=== PATIENT | male | born 1950 | race Caucasian/White ===

== ENCOUNTER → 2024-02-08 07:04 | Outpatient (REF) | payer OTHER, SELFPAY | LOC: HWRAD 07:04 | PROVIDERS: ATTENDING PHYSICIAN Internal Medicine Hematology & Oncology; FAMILY PHYSICIAN Family Medicine | DX: C7A.00 Malignant carcinoid tumor of unspecified site (principal); Z85.528 Personal history of other malignant neoplasm of kidney; C7B.04 Secondary carcinoid tumors of peritoneum | CPT/HCPCS: 74176 ==

== ENCOUNTER 2024-06-18 13:58 | Observation (INO) | payer OTHER, SELFPAY ==
[2024-06-18] VITALS (14 sets, daily range): BP systolic 129–180; BP diastolic 68–94; BMI 28.1
[2024-06-18] MEDS: NSS 500 IV (07:51)
[2024-06-18] MEDS: DILAUDID 0.5 MG IV ×2 (08:00→10:01)
[2024-06-18] MEDS: ZOFRAN 4 MG IV (08:00)
[2024-06-18 08:02] LABS: % Basophils 0.7 % (0-2); % Eosinophils 0.8 % (0-6); % Immature Granulocytes 0.4 % (0-0.5); % Monocytes 9.7 % (1.7-9.3); % Neutrophils 60.4 % (42.2-75.2); Absolute Basophils 0.1 10^3/uL (0-0.2); Absolute Eosinophils 0.1 10^3/uL (0-0.7); Absolute Lymphocytes 2.5 10^3/uL (1.2-3.4); Absolute Monocytes 0.9 10^3/uL (0.1-0.6); Absolute Neutrophils 5.5 10^3/uL (1.4-6.5); Hematocrit 46.1 % (39.0-52.0); Hemoglobin 16.3 g/dL (13.0-18.0); Mean Corp Hgb Conc. 35.4 g/dL (33.0-37.0); Mean Corpuscular Volume 90.4 fL (80.0-94.0); Nucleated Red Blood Cells % 0 % (-); Platelet Count 297 10^3/uL (130-400); Red Cell Dist. Width 13.1 % (11.5-14.5); White Blood Cell Count 9.1 10^3/uL (4.8-10.8)
--- NOTE | 2024-06-18 08:55 | ED.GENMED ---
History of Present Illness
General
Chief Complaint: Abdominal Pain
Source: patient
Exam Limitations: none
Time Seen by Provider: 06/18/24 07:34
History of Present Illness
History of Present Illness:
73-year-old male complaining of abdominal pain. Progressive over the last week. Much worse the last few days. Some nausea. History of inoperable abdominal cancer. Patient could not be more specific. Is on chronic pain management. However this
is not relieved the pain the last few days.
Past History
Past History
ED Past Medical History: Cancer (R kidney), HTN, Hypercholesterolemia and Other (Ileitis, IBS,)
ED Past Surgical History: Cholecystectomy and Other (right Nephrectomy, splenectomy)
Social History
Tobacco: Non-smoker
Alcohol: Daily ( 3-4 Beer)
Drug: None
Personal:
Living: alone
Employment: Employed
Family History
Family History: Hypertension
Review of Systems
Review of Systems
All Other Systems: Not applicable
Constitutional: Denies fever or chills
Respiratory: Reports no symptoms
Cardiac: Reports no symptoms
Phy Exam
Physical Exam
Physical Exam:
GENERAL: Alert and oriented in no apparent distress
EYE: Orbits normal.
NECK: Supple
CARDIAC: Regular rate and rhythm without any obvious murmurs.
LUNGS: Clear breath sounds,normal
ABDOMEN: Soft, bowel sounds present. No distention. Diffuse tenderness mostly in the upper quadrants. No rebound or guarding no mass or hernia
NEUROLOGICAL: Alert and oriented , grossly non-focal
SKIN: Warm and dry, no rash or lesion, no discoloration, skin intact.
MUSCULOSKELETAL: No edema,no deformity.Good color
PSYCH: Normal and appropriate interaction.
Course
Orders/Labs/Results
Orders:
Orders
06/18/24 07:45
IV Insert/Care/Rem.- Treatment PRN
0.9% Sodium Chloride 500 ml [Nss] 500 ml IV BOLUS
HYDROmorphone [Dilaudid] 0.5 mg IV NOW STA
Ondansetron Injectable [Zofran] 4 mg IV NOW STA
06/18/24 07:47
CT Abd/pel (oral only)-DH Only Urgent
Comment:
Reason For Exam: Abdominal pain progressive. History of CA
06/18/24 07:51
Complete Blood Count/With Diff Urgent
Urinalysis Reflex To Culture Urgent
Date Specimen was Collected: 06/18/24
Time Specimen was Collected: 07:49
Urine Microscopic Reflex Cult Urgent
06/18/24 08:23
Iohexol [Omnipaque] 50 ml .ROUTE .STK-MED ONE
06/18/24 09:34
Iohexol [Omnipaque] See Protocol PO NOW STA
06/18/24 09:42
Comprehensive Metabolic Panel Urgent
Lipase Urgent
06/18/24 09:44
HYDROmorphone [Dilaudid] 0.5 mg IV NOW STA
Abnormal Lab Results
06/18/24 06/18/24
07:51 09:42
MCH 32.0 H pg
(27.0-31.0)
Absolute Monos (auto) 0.9 H 10^3/uL
(0.1-0.6)
Monocytes % 9.7 H %
(1.7-9.3)
Glucose 126 H mg/dl
(70-99)
Total Bilirubin 2.0 H mg/dl
(0.2-1.3)
Ur Occult Blood Reflex 1+ A
(Negative)
Urine RBC 3-6 A /HPF
(0-2)
Urine Albumin (Reflex) 1+ A
(Neg - Trace)
06/18/24 07:51
06/18/24 09:42
Vital Signs
Initial and Last Documented VS:
Initial Vital Signs
Temp Pulse Resp BP Pulse Ox
98.1 F 78 16 180/94 99
06/18/24 07:04 06/18/24 07:04 06/18/24 07:04 06/18/24 07:04 06/18/24 07:04
Last Documented Vital Signs
Temp Pulse Resp BP Pulse Ox
98.1 F 58 22 136/69 96
06/18/24 07:04 06/18/24 11:15 06/18/24 10:45 06/18/24 11:00 06/18/24 11:15
MDM/Problems Addressed
Differential Diagnosis Includes:
Progressive abdominal pain. Large differential including progression of his cancer, diverticulitis, appendicitis. Workup in progress
*Radiology
Radiology exam reviewed: radiology read reviewed (No acute findings on CT.. Some mild fat stranding towards the abdominal wall. May reflect metastatic peritoneal implants)
*Pulse Oximetry
Patient hypoxic: no
*Critical Care Note
Total Time (30-74mins, 75-104mins- exclusive of procedures): Not Applicable
Update Note
Update Note:
Patient with intractable pain. Not comfortable with outpatient management.
ED Attending Note
-
Portions of this chart may have been created with voice recognition software.� Occasional wrong word or��sound alike� substitutions may have occurred due to the inherent limitations of voice recognition software.
Discharge Plan
Departure
Patient Disposition: Admit
Date of Disposition: 06/18/24
Time of Disposition: 11:30
Presentation/result/management discussed w/ accepting MD/DO: Hospitalist
Discharge Problem:
Intractable abdominal pain, Known nonoperable carcinoid CA
Prescriptions:
No Action
quinapril [Accupril] 40 MG tablet
80 mg PO DAILY
acetaminophen 325 MG tablet
650 mg PO Q4HPRN PRN (Reason: mild pain/ONEIL/temp> 100.4F) 0RF
atorvastatin 40 MG tablet
40 mg PO QPM
thiamine HCl (vitamin B1) 100 MG tablet
100 mg PO BID 0RF
amlodipine 2.5 MG tablet
2.5 mg PO DAILY Qty: 30 0RF
folic acid 1 MG tablet
1 mg PO DAILY 0RF
Referrals:
Julianna Tsang MD [Family Provider] -
Interventions
Interventions:
*Risk Screen - Suicide Last Done: 06/18/24 07:06
*General Assessment Last Done: 06/18/24 11:28
*Neglect/Abuse Screening Last Done: 06/18/24 07:06
ED- Fall Risk Assessment Last Done: 06/18/24 08:27
PO-Exfqjj-Didmuuesaz Assessment Last Done: 06/18/24 08:27
Discharge Date and Time
Print Language: ESTONIAN
[2024-06-18 09:06] LABS: Urine Albumin 1+ (Neg - Trace); Urine Bilirubin Negative (Negative); Urine Character Clear (Clear); Urine Color Yellow; Urine Glucose Negative (Negative); Urine Ketone Negative (Negative); Urine Leukocyte Negative (Negative); Urine Nitrite Negative (Negative); Urine Occult Blood 1+ (Negative); Urine Urobilinogen Negative (Neg - 1+)
[2024-06-18] MEDS: OMNIPAQUE 50 ML PO (09:35)
[2024-06-18 09:53] LABS: Urine Mucus Few
[2024-06-18 09:56] LABS: Urine Amorphous Seen; Urine White Cell 0-2 /HPF (0-5)
[2024-06-18 10:07] LABS: ALT (SGPT) 28 U/L (0-50); AST (SGOT) 37 U/L (17-59); Albumin 4.3 g/dl (3.5-5.0); Alkaline Phosphatase 67 U/L (38-126); Blood Urea Nitrogen 14 mg/dl (9-20); Calcium 9.6 mg/dl (8.4-10.2); Carbon Dioxide 26 mmol/L (22-30); Chloride 103 mmol/L (98-107); Glucose 126 mg/dl (70-99); Lipase 48 U/L (23-300); Potassium 4.4 mmol/L (3.5-5.1); Sodium 141 mmol/L (135-145); Total Protein 6.8 g/dl (6.3-8.2); eGFR > 60.00
--- NOTE | 2024-06-18 13:01 | HPS.HSE ---
Family Physician
-
Family Physician: Julianna Tsang
Chief Complaint
-
Abdominal pain
History of Present Illness
73 y/o M with PMHx:
Essential hypertension
Hyperlipidemia
Alcohol dependence
who p/w CC abdominal pain. Patient reports his abdominal pain has progressed over the last week. The pain has been fairly constant over the last few days and periumbilical. Until today he has had about 1 meal daily. He states he has been
urinating a little more than usual. He had vomiting this morning. Denies any lightheadedness, chest pain, shortness of breath, rash, dysuria. He denies any other acute complaints.
Medical History
Past Medical History
Past Medical History: Reports Other (Essential hypertension. Hyperlipidemia. Alcohol dependence.)
Past Surgical History: Reports Cholecystectomy and Other (R nephrectomy, splenectomy)
Social History
Tobacco: Non-smoker
Alcohol: Daily (states a 6-pack lasts him a week)
Drug: None
Family History
Family History: Not pertinent
Allergies / Home Medications
Allergies reflects when Allergies were last updated in [facility] [employer].
Home Medications with original date entered in [facility]
Allergy/Medication List:
Allergies
Allergy/AdvReac Type Severity Reaction Status Date / Time
Iodinated Contrast Media Allergy Anaphylaxis Verified 12/14/22 11:02
[Iodinated Contrast- Oral
and IV Dye]
Home Medications
hydrocodone 5 mg-acetaminophen 325 mg tablet 1 tab PO BID 06/18/24
hydrocodone 5 mg-acetaminophen 325 mg tablet 1 tab PO BIDPRN PRN SEVERE PAINS 06/18/24
rosuvastatin 40 mg tablet (Crestor) 40 mg PO DAILY 06/18/24
Review of Systems
-
History Source: Patient
A 12 point ROS was completed and negative except as noted: Yes
Physical Exam
Vital Signs
Vital Signs
Temp Pulse Resp BP Pulse Ox
98.1 F 58 22 136/69 96
06/18/24 07:04 06/18/24 11:15 06/18/24 10:45 06/18/24 11:00 06/18/24 11:15
Physical Exam
General: Other (.)
Laboratory Results
-
06/18/24 07:51
06/18/24 09:42
Laboratory Results
Total Bilirubin 2.0 mg/dl (0.2-1.3) H 06/18/24 09:42
AST 37 U/L (17-59) 06/18/24 09:42
ALT 28 U/L (0-50) 06/18/24 09:42
Alkaline Phosphatase 67 U/L (38-126) 06/18/24 09:42
Lipase 48 U/L (23-300) 06/18/24 09:42
Impression/Plan
-
Gen: NAD, AAOx3.
Eyes: EOMI, PERRLA, no scleral icterus.
Neck: supple.
CV: RRR, +S1/S2, no m/r/g.
Resp: CTAB, no rales, wheezes, or rhonchi.
Abd: +BS, soft, periumbilical TTP, ND
Skin: No rashes.
Neuro: CN 2-12 intact, non-focal.
Psych: Normal mood and affect.
CT A/P w/PO: Stable CT appearance of short segment wall thickening of the ileum and mild soft tissue nodularity in the right lower quadrant mesentery that remains most compatible with the history of carcinoid. Stable mild fat stranding deep to the
anterior abdominal wall may reflect metastatic peritoneal implants. No new acute process in the abdomen or pelvis within the limitations of the lack of intravenous contrast.
Abdominal pain and vomiting:
-afebrile, no leukocytosis
-CT A/P with PO contrast without acute findings
-likely abdominal pain is related to underlying inoperable carcinoid
-NPO/IVFs
-IV Dilaudid PRN
-Reglan PRN (zofran did not help prior)
-c/s onc
Other problems:
Essential hypertension: Previous diagnosis, currently not on antihypertensive medications
Hyperlipidemia: Resume statin once vomiting improves
Alcohol dependence: MSAS protocol with thiamine/folate/PRN ativan
FULL/Lovenox
[2024-06-18] MEDS: REGLAN 10 MG IV (13:39)
--- NOTE | 2024-06-18 17:49 | PTCARENOTE ---
Pt came from ED on stretcher. Walked from stretcher to bed. AAOx3 able to make needs known. MSAS ordered and currently scoring 0. Oriented to room and use of call murray/ remote. Denies pain at this time.
[2024-06-18] MEDS: D5/0.45%NACL 1000 IV (18:02)
[2024-06-18] MEDS: LOVENOX 40 MG SC (18:02)
[2024-06-18] MEDS: FOLVITE 1 MG PO (18:02)
[2024-06-18] MEDS: DILAUDID 1 MG IV (19:36)
[2024-06-18] MEDS: THIAMINE INJECTION 200 MG IV (20:13)
[2024-06-18 20:28] LABS: Magnesium 1.9 mg/dl (1.6-2.3); Phosphorus 2.3 mg/dl (2.5-4.5)
[2024-06-18 20:29] LABS: Alcohol None Detected
[2024-06-18 21:38] LABS: INR 1.09; PT 13.9 Sec (11.4-14.6)
[2024-06-19] MEDS: D5/0.45%NACL 1000 IV ×2 (00:29→09:01)
[2024-06-19] MEDS: DILAUDID 1 MG IV (03:12)
[2024-06-19 05:31] LABS: Hematocrit 41.6 % (39.0-52.0); Hemoglobin 14.7 g/dL (13.0-18.0); Mean Corp Hgb Conc. 35.3 g/dL (33.0-37.0); Mean Corpuscular Hgb 32.5 pg (27.0-31.0); Mean Corpuscular Volume 91.8 fL (80.0-94.0); Mean Platelet Volume 9.7 fL (7.4-10.4); Platelet Count 251 10^3/uL (130-400); Red Blood Cell Count 4.53 10^6/uL (4.70-6.10); White Blood Cell Count 9.8 10^3/uL (4.8-10.8)
[2024-06-19 06:24] LABS: Blood Urea Nitrogen 10 mg/dl (9-20); Carbon Dioxide 27 mmol/L (22-30); Chloride 103 mmol/L (98-107); Estimated Creatinine Clearance 59 ml/min; Glucose 145 mg/dl (70-99); Potassium 4.3 mmol/L (3.5-5.1); Sodium 138 mmol/L (135-145); eGFR > 60.00
[2024-06-19] MEDS: FOLVITE 1 MG PO (07:54)
[2024-06-19] MEDS: THIAMINE INJECTION 200 MG IV (07:54)
[2024-06-19 07:56] VITALS: BP 164/85
[2024-06-19] MEDS: REGLAN 10 MG IV (08:06)
--- NOTE | 2024-06-19 09:57 | W.PN.HOSP.TC ---
Today's Communication/Plan
-
Advance diet. Discharge planning in progress.
Assessment / Plan
Assessment / Plan
Physical exam:
General: Well Developed, Well Nourished and No Apparent Distress
HEENT: Normocephalic, Atraumatic and Moist Mucous Membranes
Respiratory: Clear to Auscultation; Negative Wheezes, Rales or Rhonchi
Cardiac: Regular Rhythm and S1/S2
GI: Soft, Nontender and Nondistended
Musculoskeletal: No Clubbing, No Cyanosis and No Edema
Neuro: Awake, Alert and Oriented
Psych: Calm
A/P:
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
-afebrile, no leukocytosis
-CT A/P with PO contrast without acute findings
-likely abdominal pain is related to underlying inoperable carcinoid
-Started on diet today by oncology/IVFs decrease rate and stop later.
-IV Dilaudid PRN but has not used any today
-Reglan PRN (zofran did not help prior) but has not used any antiemetic today
-c/s onc appreciated. Plan to continue octreotide as outpatient.
-Plan to discharge today if tolerates diet
Other problems:
Essential hypertension: Previous diagnosis, currently not on antihypertensive medications
Hyperlipidemia: Resume statin once vomiting improves
Alcohol dependence: MSAS protocol with thiamine/folate/PRN ativan
FULL/Lovenox
Anticipated Discharge: Today
Subjective/Interval History
-
Date of Service: June 19, 2024
Patient denies any abdominal pain nausea vomiting today.
Objective Data
-
Labs:
Laboratory Results
06/19/24
05:22
WBC 9.8
Hgb 14.7
Hct 41.6
Plt Count 251
Sodium 138
Potassium 4.3
Chloride 103
Carbon Dioxide 27
BUN 10
Creatinine 1.0
Glucose 145 H
Calcium 9.0
Vital Signs:
Vital Signs
Temp Pulse Resp BP Pulse Ox
98.3 F 64 16 164/85 96
06/19/24 07:56 06/19/24 07:56 06/19/24 07:56 06/19/24 07:56 06/19/24 07:56
--- NOTE | 2024-06-19 11:33 | CON.ONC ---
Impression
Impression
Abdominal pain, most likely related to carcinoid, resolved
Plan
Plan
I have given him a regular diet. No objections to discharge if he tolerates it.
Patient History
History of Present Illness
Consult from Dr. Brito regarding carcinoid
This 73-year-old man was admitted with abdominal pain. 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 There was too much disease to consider resection. He has been
maintained on octreotide and is doing reasonably well. He has had no symptoms of carcinoid syndrome. He gets occasional bouts of abdominal pain which resolved with hydrocodone. However, he had severe pain that did not respond to oral narcotics
and has been admitted through the emergency room. He has had no vomiting. He had a bowel movement this morning. His abdominal pain has entirely resolved.
Patient Medication
�Medication �Instructions �Recorded �Confirmed �Last Taken �Type
hydrocodone 5 mg-acetaminophen 325 1 tab PO BID 06/18/24 06/18/24 06/18/24 History
mg tablet
hydrocodone 5 mg-acetaminophen 325 1 tab PO BIDPRN PRN SEVERE PAINS 06/18/24 06/18/24 06/18/24 History
mg tablet
rosuvastatin 40 mg tablet (Crestor) 40 mg PO DAILY 06/18/24 06/18/24 Unknown History
Active Medications
Generic Name Dose Route Start Last Admin
Trade Name Freq PRN Reason Stop Dose Admin
Bisacodyl 10 mg 06/18/24 16:48
Bisacodyl 10 Mg Rectal Suppository RECTAL 07/16/24 16:47
[id number] PRN
constipation
Enoxaparin Sodium 40 mg 06/18/24 18:00 06/18/24 18:02
Enoxaparin Sodium 40 Mg/0.4 Ml Syringe SC 07/16/24 17:59 40 mg
QPM JOAO Administration
Folic Acid 1 mg 06/18/24 16:48 06/19/24 07:54
Folic Acid 1 Mg Tablet PO 07/16/24 16:47 1 mg
DAILY JOAO Administration
Hydromorphone HCl 1 mg 06/18/24 16:48 06/19/24 03:12
Hydromorphone 1 Mg/Ml Carpuject IV 07/02/24 16:47 1 mg
Q4HPRN PRN Administration
severe pain
Dextrose/Sodium Chloride 1,000 mls @ 125 mls/hr 06/18/24 16:48 06/19/24 09:01
D5/0.45%Nacl IV 1,000 mls
.Q8H JOAO Administration
Folic Acid 1 mg/ Sodium 50.2 mls @ 200.8 mls/hr 06/18/24 16:48
Chloride IV 07/16/24 16:47
DAILYPRN PRN
if NPO
Lorazepam 1 mg 06/18/24 16:48
Lorazepam 1 Mg Tablet PO 07/16/24 16:47
Q2HPRN PRN
MSAS 5-7
Lorazepam 1 mg 06/18/24 16:48
Lorazepam 2 Mg/Ml Vial IV 07/16/24 16:47
Q1HPRN PRN
MSAS 8-11
Lorazepam 2 mg 06/18/24 16:48
Lorazepam 2 Mg/Ml Vial IV 07/16/24 16:47
Q1HPRN PRN
MSAS > 11
Metoclopramide HCl 10 mg 06/18/24 13:12 06/19/24 08:06
Metoclopramide 10 Mg/2 Ml Vial IV 07/16/24 13:11 10 mg
Q6HPRN PRN Administration
nausea and vomiting
Polyethylene Glycol 17 grams 06/18/24 16:48
Polyethylene Glycol Powder 17 Grams Packet PO 07/16/24 16:47
DAILYPRN PRN
constipation
Senna/Docusate Sodium 1 tablet 06/18/24 16:48
Docusate W/Senna (Tierra-Colace) Tablet PO 07/16/24 16:47
BIDPRN PRN
constipation
Sodium Chloride 0 flush 06/18/24 14:00
Sodium Chloride 0.9% (Flush) Syringe IV 07/16/24 13:59
PER PROTOCOL JOAO
Sodium Chloride 0 ml 06/18/24 16:48
Sodium Chloride 0.9% (Preservative Free) 10 Ml Vial IV 07/16/24 16:47
PRN PRN
To dilute IV Ativan
Protocol
Thiamine HCl 200 mg 06/18/24 20:00 06/19/24 07:54
Thiamine (100 Mg/Ml) 2 Ml Vial IV 06/21/24 08:01 200 mg
Q12 JOAO Administration
Thiamine HCl 100 mg 06/21/24 20:00
Thiamine 100 Mg Tablet PO 07/19/24 19:59
BID JOAO
Review of Systems
-
All Other Systems: Reviewed and Negative
Physical Exam
-
Physical examination shows the patient to be in no acute distress.
HEENT exam is unremarkable.
There are no palpable nodes.
Chest is clear.
The heart is regular with no murmur or gallop.
The abdomen is soft and nontender with no organomegaly or masses.
Extremities are unremarkable.
Neurologic is grossly intact.
Labs
Lab Results
WBC 9.8 10^3/uL (4.8-10.8) 06/19/24 05:22
RBC 4.53 10^6/uL (4.70-6.10) L 06/19/24 05:22
Hgb 14.7 g/dL (13.0-18.0) 06/19/24 05:22
Hct 41.6 % (39.0-52.0) 06/19/24 05:22
MCV 91.8 fL (80.0-94.0) 06/19/24 05:22
MCH 32.5 pg (27.0-31.0) H 06/19/24 05:22
MCHC 35.3 g/dL (33.0-37.0) 06/19/24 05:22
RDW 13.0 % (11.5-14.5) 06/19/24 05:22
Plt Count 251 10^3/uL (130-400) 06/19/24 05:22
MPV 9.7 fL (7.4-10.4) 06/19/24 05:22
Abs Immat Gran (auto) 0.0 10^3/uL (0-0.05) 06/18/24 07:51
Absolute Neuts (auto) 5.5 10^3/uL (1.4-6.5) 06/18/24 07:51
Absolute Lymphs (auto) 2.5 10^3/uL (1.2-3.4) 06/18/24 07:51
Absolute Monos (auto) 0.9 10^3/uL (0.1-0.6) H 06/18/24 07:51
Absolute Eos (auto) 0.1 10^3/uL (0-0.7) 06/18/24 07:51
Absolute Basos (auto) 0.1 10^3/uL (0-0.2) 06/18/24 07:51
Immature Gran % 0.4 % (0-0.5) 06/18/24 07:51
Neutrophils % 60.4 % (42.2-75.2) 06/18/24 07:51
Lymphocytes % 28.0 % (20.5-51.1) 06/18/24 07:51
Monocytes % 9.7 % (1.7-9.3) H 06/18/24 07:51
Eosinophils % 0.8 % (0-6) 06/18/24 07:51
Basophils % 0.7 % (0-2) 06/18/24 07:51
Creatinine 1.0 mg/dL (0.7-1.3) 06/19/24 05:22
Vital Signs
Vital Signs
Temp Pulse Resp BP Pulse Ox
98.3 F 64 16 164/85 96
06/19/24 07:56 06/19/24 07:56 06/19/24 07:56 06/19/24 07:56 06/19/24 07:56
--- NOTE | 2024-06-19 14:30 | W.DCSUMMARY ---
Discharge Summary
Discharge Data
Date of Admission: 06/18/24
Date of Discharge: 06/19/24
-
Pending Results: No
Hospital Course
Patient is 73 years old male with history of neuroendocrine tumor came into the hospital abdominal pain. Patient has been seeing oncology as outpatient and he was felt to have too much disease to consider resection and he has been maintained on
octreotide and doing well as outpatient. Patient came in with abdominal pain nausea. He took his oral narcotics but did not tolerate well and came into the hospital. He had a CT scan of the abdomen that shows evidence of carcinoid but no other
pathologies. He was kept n.p.o. and given IV fluids. Oncology consulted. By the time oncology evaluated the patient the following day patient pain had improved and he was placed on diet that he tolerated. By the time of my evaluation abdomen is
very benign and he is tolerating diet without any problems. He would like to follow-up with oncology as outpatient and would like to go home today. He does not feel he needs any changes on his medications either. He is going to be discharged in
stable condition today.
Discharge Plan
-
Patient Disposition: Home (Routine Discharge)
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
Diet: Low Cholesterol
Activity: As tolerated
Blood Work: Please PCP to order CBC, BMP within 1 week
Referrals:
Julianna Tsang MD [Family Provider] - in less than 1 week
Mario Alberto Kunz MD [Active] - in one to two weeks
Prescriptions:
Continued
hydrocodone-acetaminophen 5-325 mg Tablet
1 tab PO BID
hydrocodone-acetaminophen 5-325 mg Tablet
1 tab PO BIDPRN PRN (Reason: SEVERE PAINS)
rosuvastatin [Crestor] 40 mg Tablet
40 mg PO DAILY
Discharge Orders:
Discharge Patient (As Directed); Ordered 06/19/24
Ordered By: Eduardo Cartwright
Discharge Date and Time
Discharge Date/Time: 06/19/24 15:29
Print Language: OCCITAN
[2024-06-19] MEDS: FLUAD (65 yr+) 2024-2025 FORMULA 0.5 ML IM (14:46)
[2024-06-19 15:07] VITALS: BP 164/79
--- NOTE | 2024-06-19 16:15 | CM ---
CM met with patient at bedside to complete IA. Consult for substance abuse counseling was received. CM attempted to speak with Jesus Alberto regarding conversation with [facility], however he strongly declined.
Jesus Alberto lives with his son, JERRY and grandson in a 2 story home with 1 entry step. Patient indicated that his family is supportive. He will return home with no needs.
CM will continue to follow for coordination of any discharge planning needs.
== END 2024-06-19 15:29 | disposition home or self-care (01) ==
LOC: 3 WEST ACU 13:58
PROVIDERS: ADMITTING PHYSICIAN Internal Medicine; ATTENDING PHYSICIAN Hospitalist; EMERGENCY PHYSICIAN Emergency Medicine; FAMILY PHYSICIAN Family Medicine; OTHER PHYSICIAN Internal Medicine Hematology & Oncology
DX: E34.00 Carcinoid syndrome, unspecified (principal); C7A.00 Malignant carcinoid tumor of unspecified site; R10.9 Unspecified abdominal pain; R11.2 Nausea with vomiting, unspecified; I10 Essential (primary) hypertension; E78.00 Pure hypercholesterolemia, unspecified; K58.9 Irritable bowel syndrome, unspecified; F10.20 Alcohol dependence, uncomplicated; Z90.5 Acquired absence of kidney; Z91.041 Radiographic dye allergy status; Z82.49 Family history of ischemic heart disease and other diseases of the circulatory system; Z90.49 Acquired absence of other specified parts of digestive tract; Z85.528 Personal history of other malignant neoplasm of kidney; Z23 Encounter for immunization
CPT/HCPCS: 74176; 80048; 80053; 81003; 81015; 82077; 83690; 83735; 84100; 85025; 85027; 85610; 85730; 90662; 96361; 96374; 96375; 96376; 99285; G0008; G0378

== ENCOUNTER → 2025-05-22 08:08 | Outpatient (REF) | payer OTHER, SELFPAY | LOC: HWRAD 08:08 | PROVIDERS: ATTENDING PHYSICIAN Nurse Practitioner Primary Care; FAMILY PHYSICIAN Family Medicine | DX: C7A.00 Malignant carcinoid tumor of unspecified site (principal); Z85.528 Personal history of other malignant neoplasm of kidney; C7B.04 Secondary carcinoid tumors of peritoneum | CPT/HCPCS: 74176 ==

== ENCOUNTER 2025-07-13 07:00 | Emergency (ER) | payer OTHER, SELFPAY ==
[2025-07-13 07:17] VITALS: BP 159/91
--- NOTE | 2025-07-13 07:36 | ED.GENMED ---
History of Present Illness
<Srini Watson MD, Resident - Last Filed: 07/13/25 12:28>
General
Chief Complaint: Abdominal Pain
Source: patient and family
Time Seen by Provider: 07/13/25 07:10
History of Present Illness
History of Present Illness:
Patient is a 74-year-old male with PMH neuroendocrine tumor, partial SBO, HTN, HLD and PSH splenectomy, cholecystectomy, right nephrectomy who presents to the [facility] ED with severe (9�10/10 intensity), diffuse, constant abdominal pain since 3 AM
this morning. Associated symptoms include bloating and nausea. Patient took oxycodone 5 mg and an antiemetic around 5 AM this morning, which did not provide significant relief. Patient initially developed increasing abdominal pain approximately
10 days ago, which was intermittent and less severe. The pain resolved Wednesday (5 days ago), but it progressed over the course of this week with acute worsening this morning. No association with eating or bowel movements. Last BM was yesterday.
No issues with urination. Patient has had similar episodes of pain 1�2 times per year for the last couple years. Patient normally takes hydromorphone for chronic pain. Denies vomiting, chest pain, shortness of breath, palpitations, diarrhea, or
headache. Patient follows with oncologists at [facility] (Dr. Valentin) and [facility] for his neuroendocrine tumor, which was diagnosed approximately 4 years ago.
Past History
<Srini Watson MD, Resident - Last Filed: 07/13/25 12:28>
Past History
ED Past Medical History: Cancer (Neuroendocrine tumor, R kidney), HTN, Hypercholesterolemia and Other (Ileitis, IBS,)
ED Past Surgical History: Cholecystectomy and Other (right Nephrectomy, splenectomy)
Social History
Tobacco: Non-smoker
Alcohol: Daily ( 3-4 Beer)
Drug: None
Personal:
Living: alone
Employment: Employed
Family History
Family History: Hypertension
Review of Systems
<Srini Watson MD, Resident - Last Filed: 07/13/25 12:28>
Review of Systems
Constitutional: Denies fever, fatigue or chills
Respiratory: Denies trouble breathing
Cardiac: Denies chest pain or palpitations
ABD/GI: Reports abdominal pain and nausea; Denies vomiting or diarrhea
: Denies dysuria, frequency or urgency
Neurological: Denies headache
Phy Exam
<Srini Watson MD, Resident - Last Filed: 07/13/25 12:28>
Physical Exam
Physical Exam:
General: Moderate distress due to pain. Easily communicative.
GI: Exquisitely tender on light palpation diffusely. Mild guarding. No rigidity. Nondistended. No ecchymoses or lesions.
CV: RRR. S1, S2 noted. No M/R/G.
Pulm: CTAB. No wheezes or crackles.
Neuro: A&O x 3. NFD. CN II through XII grossly intact.
Course
<Srini Watson MD, Resident - Last Filed: 07/13/25 12:28>
Orders/Labs/Results
Orders:
Orders
07/13/25 07:35
Complete Blood Count/With Diff Urgent
Comprehensive Metabolic Panel Urgent
Lipase Urgent
07/13/25 07:43
HYDROmorphone [Dilaudid] 0.5 mg IV NOW STA
Ondansetron Injectable [Zofran] 4 mg IV NOW STA
CR Obstruct Series W/pa Chest Urgent
Comment:
Reason For Exam: abd pain
07/13/25 07:49
0.9% Sodium Chloride 500 ml [Nss] 500 ml IV BOLUS
07/13/25 08:07
CT Abd/pel (oral only)-[facility] Only Urgent
Comment:
Reason For Exam: abd pain
Iohexol [Omnipaque] See Protocol PO NOW STA
07/13/25 10:04
HYDROmorphone [Dilaudid] 0.5 mg IV NOW STA
Abnormal Lab Results
07/13/25
07:35
MCH 31.5 H pg
(27.0-31.0)
MPV 10.8 H fL
(7.4-10.4)
Absolute Neuts (auto) 7.7 H 10^3/uL
(1.4-6.5)
Absolute Monos (auto) 1.0 H 10^3/uL
(0.1-0.6)
Lymphocytes % 16.7 L %
(20.5-51.1)
Monocytes % 9.5 H %
(1.7-9.3)
Glucose 140 H mg/dl
(70-99)
Total Bilirubin 1.7 H mg/dl
(0.2-1.3)
07/13/25 07:35
07/13/25 07:35
Vital Signs
Initial and Last Documented VS:
Initial Vital Signs
Temp Pulse Resp Pulse Ox
97.3 F 71 18 100
07/13/25 07:06 07/13/25 07:06 07/13/25 07:06 07/13/25 07:06
Last Documented Vital Signs
Temp Pulse Resp BP Pulse Ox
97.3 F 68 17 129/72 97
07/13/25 07:06 07/13/25 11:31 07/13/25 11:31 07/13/25 11:31 07/13/25 11:31
<Benny Tang MD - Last Filed: 07/13/25 12:04>
Orders/Labs/Results
Orders:
Orders
07/13/25 07:35
Complete Blood Count/With Diff Urgent
Comprehensive Metabolic Panel Urgent
Lipase Urgent
07/13/25 07:43
HYDROmorphone [Dilaudid] 0.5 mg IV NOW STA
Ondansetron Injectable [Zofran] 4 mg IV NOW STA
CR Obstruct Series W/pa Chest Urgent
Comment:
Reason For Exam: abd pain
07/13/25 07:49
0.9% Sodium Chloride 500 ml [Nss] 500 ml IV BOLUS
07/13/25 08:07
CT Abd/pel (oral only)-[facility] Only Urgent
Comment:
Reason For Exam: abd pain
Iohexol [Omnipaque] See Protocol PO NOW STA
07/13/25 10:04
HYDROmorphone [Dilaudid] 0.5 mg IV NOW STA
Abnormal Lab Results
07/13/25
07:35
MCH 31.5 H pg
(27.0-31.0)
MPV 10.8 H fL
(7.4-10.4)
Absolute Neuts (auto) 7.7 H 10^3/uL
(1.4-6.5)
Absolute Monos (auto) 1.0 H 10^3/uL
(0.1-0.6)
Lymphocytes % 16.7 L %
(20.5-51.1)
Monocytes % 9.5 H %
(1.7-9.3)
Glucose 140 H mg/dl
(70-99)
Total Bilirubin 1.7 H mg/dl
(0.2-1.3)
07/13/25 07:35
07/13/25 07:35
Vital Signs
Initial and Last Documented VS:
Initial Vital Signs
Temp Pulse Resp Pulse Ox
97.3 F 71 18 100
07/13/25 07:06 07/13/25 07:06 07/13/25 07:06 07/13/25 07:06
Last Documented Vital Signs
Temp Pulse Resp BP Pulse Ox
97.3 F 68 17 129/72 97
07/13/25 07:06 07/13/25 11:31 07/13/25 11:31 07/13/25 11:31 07/13/25 11:31
<Srini Watson MD, Resident - Last Filed: 07/13/25 12:28>
MDM/Problems Addressed
Differential Diagnosis Includes:
Small bowel obstruction
Bowel perforation
Peritonitis
Pancreatitis
Aortic dissection
AAA rupture
GI ulcer
MDM/Problems Addressed:
Assessment: Patient is a 74-year-old male with PMH of neuroendocrine tumor and multiple abdominal surgeries who presents with 10 days of initially intermittent, moderate abdominal pain with acute worsening to constant, severe, diffuse abdominal pain
3 AM this morning that is refractory to pain control with oxycodone. Physical exam remarkable for exquisite tenderness to light palpation diffusely with mild guarding. Concern for SBO, perforation, among other possibilities.
Plan:
#Abdominal pain
Imaging: Obstructions series XR, CTAP w/ oral contrast
Labs: CBC, CMP, lipase
Pain control: Hydromorphone
Antiemetics: Zofran
Chronic conditions affecting care: Previous abdomnial surgery and Cancer
<Srini Watson MD, Resident - Last Filed: 07/13/25 12:28>
*Pulse Oximetry
SaO2: 100
Oxygen Mode of Delivery: Room air
Patient hypoxic: no
*Critical Care Note
Total Time (30-74mins, 75-104mins- exclusive of procedures): Not Applicable
ED Attending Note
<Srini Watson MD, Resident - Last Filed: 07/13/25 12:28>
-
Portions of this chart may have been created with voice recognition software.� Occasional wrong word or��sound alike� substitutions may have occurred due to the inherent limitations of voice recognition software.
<Benny Tang MD - Last Filed: 07/13/25 12:04>
ED Attending Note
Patient seen and examined by attending physician: Yes
ED Attending Note:
Patient with history of neuroendocrine tumor, who presents to ED secondary to intermittent abdominal pain over the past 10 days, persistent with nausea sensation upon waking up this morning at 3 AM. Abdominal pain described as sharp, diffuse,
without any alleviating or exacerbate factors. Patient states his symptoms are similar to 1 year ago, when he was admitted to the hospital. At that time, despite extensive workup, was not able to determine etiology behind his abdominal pain.
Patient does experience intermittent abdominal pain, for which he takes pain medication at home. His most recent CT scan has revealed increased size of his tumor, and there has been discussion about potentially receiving radiation. Denies trauma.
Denies fever or chills. Patient does report having had normal bowel yesterday. Denies recent illness. Denies recent change in medications or diet.
Physical Exam
General: mild painful distress, not acutely ill. afebrile
Head: nc/at. eomi
Neck: supple. no meningeal signs.
Heart: s1/s2 regular rate and rhythm
Lungs: no acute respiratory distress. clear bilaterally
Abdomen: normal bowel sounds. diffuse tenderness to palpation. no distention
Neuro: alert and oriented x 3. no focal neurological deficits
Skin: no rash
Psychiatric: well kept. interactive and cooperative
Extremities: no edema. no calf tenderness.
Patient with an unremarkable workup in ED, including blood work and CT abdomen pelvis. Patient otherwise remains afebrile, hemodynamically stable, and nontoxic-appearing. After discussing test results, and with improvement in symptoms after
treatment, patient feels comfortable going home at this time. Patient will return to ED with worsening symptoms, i.e. fever/worsening pain/vomiting. Patient will be discharged home in stable condition, to the care of his son, with instructions to
follow-up with his PCP or oncologist, as outpatient.
Discharge Plan
Departure
Patient Disposition: Home (Routine Discharge)
Date of Disposition: 07/13/25
Time of Disposition: 12:03
Patient with high blood pressure during this ER visit?: Yes
Discharge Problem:
Abdominal pain
Instructions: Abdominal Pain
Prescriptions:
No Action
hydrocodone-acetaminophen 5-325 mg Tablet
1 tab PO BID
hydrocodone-acetaminophen 5-325 mg Tablet
1 tab PO BIDPRN PRN (Reason: SEVERE PAINS)
rosuvastatin [Crestor] 40 mg Tablet
40 mg PO DAILY
Referrals:
Julianna Tsang MD [Family Provider]
Activity Restrictions/Additional Instructions:
As discussed, please follow-up with your primary care physician and or oncologist for reevaluation. Please consider return to ED with worsening symptoms, i.e. fever/worsening pain/vomiting.
Interventions
Interventions:
*Risk Screen - Suicide Last Done: 07/13/25 07:02
*General Assessment Last Done: 07/13/25 07:53
*Neglect/Abuse Screening Last Done: 07/13/25 07:02
*ED- Fall Risk Assessment Last Done: 07/13/25 07:53
*ED COVID-19 Vaccine History Last Done: 07/13/25 07:53
*ED Influenza Vaccine History Last Done: 07/13/25 07:53
*Nursing Disposition Last Done: 07/13/25 12:14
GE-Kggytd-Favoduahrb Assessment Last Done: 07/13/25 07:53
Discharge Date and Time
Discharge Date/Time: 07/13/25 12:15
Print Language: MAORI
[2025-07-13] MEDS: ZOFRAN 4 MG IV (07:45)
[2025-07-13] MEDS: DILAUDID 0.5 MG IV ×2 (07:49→10:09)
[2025-07-13] MEDS: NSS 500 IV (07:52)
[2025-07-13 07:53] VITALS: BMI 27.6
[2025-07-13 08:20] LABS: ALT (SGPT) 33 U/L (0-50); AST (SGOT) 34 U/L (17-59); Albumin 4.6 g/dl (3.5-5.0); Alkaline Phosphatase 78 U/L (38-126); Blood Urea Nitrogen 17 mg/dl (9-20); Calcium 9.8 mg/dl (8.4-10.2); Carbon Dioxide 25 mmol/L (22-30); Chloride 103 mmol/L (98-107); Estimated Creatinine Clearance 58 ml/min; Glucose 140 mg/dl (70-99); Lipase 85 U/L (23-300); Potassium 4.2 mmol/L (3.5-5.1); Sodium 136 mmol/L (135-145); Total Protein 7.7 g/dl (6.3-8.2); eGFR > 60.00
[2025-07-13] MEDS: OMNIPAQUE 50 ML PO (08:24)
[2025-07-13 08:27] VITALS: BP 149/70
[2025-07-13 10:12] VITALS: BP 123/64
[2025-07-13 10:20] LABS: Hematocrit 47.7 % (39.0-52.0); Hemoglobin 16.1 g/dL (13.0-18.0); Mean Corp Hgb Conc. 33.8 g/dL (33.0-37.0); Mean Corpuscular Volume 93.3 fL (80.0-94.0); Nucleated Red Blood Cells % 0 % (-); Platelet Count 353 10^3/uL (130-400); Red Cell Dist. Width 12.5 % (11.5-14.5)
[2025-07-13 11:31] VITALS: BP 129/72
== END 2025-07-13 12:15 | disposition home or self-care (01) ==
LOC: EMR 07:00
PROVIDERS: EMERGENCY PHYSICIAN Emergency Medicine; FAMILY PHYSICIAN Family Medicine
DX: R10.9 Unspecified abdominal pain (principal); E78.00 Pure hypercholesterolemia, unspecified; I10 Essential (primary) hypertension; K58.9 Irritable bowel syndrome, unspecified; Z82.49 Family history of ischemic heart disease and other diseases of the circulatory system; Z90.49 Acquired absence of other specified parts of digestive tract; Z90.5 Acquired absence of kidney; Z90.81 Acquired absence of spleen
CPT/HCPCS: 99284; 96374; 96375; 96376; 74022; 74176; 80053; 83690; 85025